=== PATIENT | female | born 1985 | race Caucasian/White ===

== ENCOUNTER 2017-08-18 09:40 | Emergency (ER) | payer OTHER ==
[2017-08-18 09:55] VITALS: BP 121/82; PULSE 75; TEMP 98.3; BMI 28.1
--- NOTE | 2017-08-18 10:29 | PDOC ---
History of Present Illness - General Chief Complaint: Pain Stated Complaint: ABDOMINAL PAIN Time Seen by Provider: 08/18/17 09:46 History Source: Patient Exam Limitations: No Limitations - History of Present Illness Travel History: No Initial Comments: 08/18/17 10:28 32y F hx of gastritis, gall stones presents with epigastric pain x 3 days. Pt notes the pain is constant, nonradiating, does not wax/wane, no associated fever , vomiting, diarrhea, dysuria, hematuria, vaginal bleeding. Pt denies any chest pain, sob, roberts, worsening of pain on exertion. pt does endorse some nausea at the very onset of the pain but it has since resolved. there is no worsening or improvement of the pain on food intake. pt notes she was dx with gall stones several years ago but the pain was more on the left side. pt denies any etoh, nsaid/pain mediction abuse LMP: 07/23/17 surgical history: csection Past History - Past Medical History Allergies/Adverse Reactions: Allergies Allergy/AdvReac Type Severity Reaction Status Date / Time No Known Allergies Allergy Verified 10/04/15 16:34 COPD: No GI Disorders: Yes (GALLSTONES) Other medical history: UMBILICAL HERNA - Reproductive History Is Patient Now?: No - Suicide/Smoking/Psychosocial Hx Smoking History: Never smoked Hx Alcohol Use: No Drug/Substance Use Hx: No Substance Use Type: None Review of Systems - Review of Systems Able to Perform ROS?: Yes Comments:: 08/18/17 11:04 Constitutional - no reported Fever, Chills, HEENT: no reported vision changes, sore throat Respiratory: no reported cough, sob, hemoptysis Cardiac: no reported chest pain, palpitations, light headedness, leg swelling Abd/GI: + abd pain, no reported nausea, vomiting, blood per rectum, melena, diarrhea : no reported dysuria, frequency, discharge Musculskelatal - no reported back pain, joint swelling skin - no reported bruising, erythema, rash neurological: no reported headache, numbness, focal weakness, tingling, ataxia, hematologic: no reported anemia, easy bruising, easy bleeding *Physical Exam - Vital Signs Last Vital Signs Temp Pulse Resp BP Pulse Ox 98.3 F 75 15 121/82 99 08/18/17 09:41 08/18/17 09:41 08/18/17 09:41 08/18/17 09:41 08/18/17 09:41 - Physical Exam Comments: 08/18/17 11:04 GENERAL: The patient is awake, alert, and fully oriented, Nontoxic - in no acute distress. HEAD: Normocephalic, atraumatic. EYES: extraocular movements intact, sclera anicteric, conjunctiva clear. ENT: Normal voice, Moist mucous membranes. NECK: Normal range of motion, supple LUNGS: Breath sounds equal, clear to auscultation bilaterally. No wheezes, no rhonchi, no rales. HEART: Regular rate and rhythm, normal S1 and S2 without murmur, rub or gallop. ABDOMEN: Soft, minimal epigastric tenderness, +defect in midline superior to ubmilcis without any masses/tenderness appeciated, normoactive bowel sounds. No guarding, no rebound. No CVA tenderness, nondistended EXTREMITIES: Normal range of motion, no edema. No clubbing or cyanosis. No cords, erythema, or tenderness. NEUROLOGICAL: No facial assymetry, Normal speech, PSYCH: Normal mood, normal affect. SKIN: Warm, Dry, normal turgor, Heart Score/ECG Review - ECG Impressions Comment:: 08/18/17 12:52 Twelve-lead EKG was performed and reviewed by me. There is normal sinus rhythm with a normal rate. Rate of 72 The axis is normal. The intervals are normal. There is normal R wave progression There are no ST or T wave abnormalities. Impression: Normal twelve-lead EKG ED Treatment Course - LABORATORY CBC & Chemistry Diagram: 08/18/17 11:00 08/18/17 11:00 Medical Decision Making - Medical Decision Making 08/18/17 11:05 32-year-old female presenting with 3 days of constant epigastric abdominal pain On exam the patient is well-appearing, in no distress with minimal epigastric tenderness Differential includes possible gastritis, pancreatitis, gall bladder, , atypical presentation of appendicitis Will obtain screening blood work, lipase, EKG, urine, hCG Will give Pepcid, Maalox Will reassess 08/18/17 12:52 The patient's labs are reviewed they are unremarkable Ultrasound noted for multiple gallstones without any signs of obstruction or CBD dilatation. 08/18/17 13:53 lipase pending 08/18/17 13:58 pt requesting to leave as she needs to pharmacy picking tech her daugther i recommended the pt stay for the lipase, but pt states she prefers to leave and we can call her with the results. if it is high, the patient will come back if it is high. she feels mild soreness in her abdomen currently. pts also here and agrees with the paln to return immediately if valdo is worse or her lipase is high will have pt fu with PMD/GI for further evaluation I discussed the physical exam findings, ancillary test results and final diagnoses with the patient. I answered all of the patient's questions. The patient was satisfied with the care received and felt comfortable with the discharge plan and treatment plan. The patient will call their primary care physician within 24 hours to arrange follow-up and will return to the Emergency Department with any new, persistent or worsening symptoms. 08/18/17 14:49 lipase negative pt notified will have her fu with her PMD *DC/Admit/Observation/Transfer Diagnosis at time of Disposition: Epigastric abdominal pain Cholelithiases Qualifiers: Cholelithiasis location: gallbladder Cholecystitis presence: without cholecystitis Biliary obstruction: without biliary obstruction Qualified Code(s) : K80.20 - Calculus of gallbladder without cholecystitis without obstruction - Discharge Dispostion Disposition: HOME Condition at time of disposition: Good Admit: No - Referrals Referrals: Jose G Martínez MD [Primary Care Provider] - - Patient Instructions Printed Discharge Instructions: DI for Gallstones, DI for Epigastric Pain Additional Instructions: Return to the emergency department immediately with ANY new, persistent or worsening symptoms including worsening abdominal pain, fevers, inability to tolerate oral intake, chest pain, shortness of breath or any other concerns. Take your nexium as prescribed. Avoid any spicy foods, sour foods, caffeine. Stay well hydrated. Your lipase level is still pending - we will call you with the results - if it is very elevated we will call you and you should return for admission You MUST call and follow up with your primary care doctor and GI doctor for further evaluation. Your emergency department visit is not complete without a followup with your doctor for reevaluation. Please make sure your doctor reviews the results of your emergency evaluation. Print Language: YORUBA - Post Discharge Activity
[2017-08-18] MEDS ORDERED: MAG HYDROX/AL HYDROX/SIMETH -MYLANTA- ORAL SUSPENSION PO ONE (10:56)
[2017-08-18] MEDS ORDERED: FAMOTIDINE IV 20 MG/12 ML VIAL IVPUSH SCH (11:00)
[2017-08-18 11:04] LABS: HCG,QUALITATIVE URINE NEGATIVE
[2017-08-18] MEDS ORDERED: MAG HYDROX/AL HYDROX/SIMETH 30 ML UNIT-DOSE CUP ONE (11:08)
[2017-08-18] MEDS ORDERED: FAMOTIDINE 20 MG/50 ML IVPB 20 MG/50 ML MG IVPB ONE (11:08)
[2017-08-18 11:10] LABS: BASO % 1.2 % (0-2.0); EOS % 2.4 % (0-4.5); HEMATOCRIT 39.5 % (32.4-45.2); HEMOGLOBIN 13.3 GM/dl (10.7-15.3); LYMPH % 27.2 % (8-40); MCH 29.7 pg (25.7-33.7); MCHC 33.8 g/dl (32.0-36.0); MEAN CELL VOLUME 87.9 fl (80-96); MEAN PLT VOLUME 9.2 fl (7.5-11.1); MONO % 6.2 % (3.8-10.2); PLATELET COUNT 277 K/MM3 (134-434); RBC 4.49 M/mm3 (3.60-5.2); RDW 12.9 % (11.6-15.6)
[2017-08-18 11:26] LABS: ALBUMIN 4.2 g/dl (3.5-5.0); ALK PHOS 63 U/L (32-92); ANION GAP 6 (8-16); BLOOD UREA NITROGEN 9 mg/dl (7-18); CALCIUM 9.1 mg/dl (8.4-10.2); CHLORIDE 103 mmol/L (98-107); CO2 25 mmol/L (22-28); GLUCOSE,RANDOM 98 mg/dl (74-106); POTASSIUM 3.8 mmol/L (3.5-5.1); SGOT/AST 20 U/L (10-42); SGPT/ALT 17 U/L (10-40); SODIUM 134 mmol/L (136-145)
[2017-08-18 11:54] LABS: PH,URINE 6.5 (4.5-8); URINE APPEARANCE Clear; URINE BILIRUBIN Negative (NEGATIVE); URINE BLOOD Negative (NEGATIVE); URINE GLUCOSE (UA) Negative (NEGATIVE); URINE KETONE Negative (NEGATIVE); URINE LEUK ESTERASE Negative (NEGATIVE); URINE NITRITE Negative (NEGATIVE); URINE PROTEIN Negative (NEGATIVE); URINE UROBILINOGEN 0.2 (0.2-1.0)
[2017-08-18 12:01] LABS: BILIRUBIN,TOTAL 0.5 mg/dl (0.2-1.0)
[2017-08-18 12:03] LABS: CREATININE < 0.8 mg/dl (0.6-1.3)
[2017-08-18 12:06] LABS: URINE COLOR YELLOW
[2017-08-18 14:42] LABS: LIPASE 130 U/L (73-393)
--- NOTE | 2017-08-20 20:47 | EKG ---
Test Reason : Blood Pressure : / mmHG Vent. Rate : 072 BPM Atrial Rate : 072 BPM P-R Int : 150 ms QRS Dur : 070 ms QT Int : 396 ms P-R-T Axes : 027 077 050 degrees QTc Int : 433 ms NORMAL SINUS RHYTHM NORMAL ECG NO PREVIOUS ECGS AVAILABLE Confirmed by TAO SILVEIRA MD ([id number]) on 08/20/2017 8:47:06 PM Referred By: SHANNON Confirmed By:TAO SILVEIRA MD
== END 2017-08-18 14:09 | disposition home or self-care (01) ==
LOC: FER 09:40
PROC: 3E033GC Introduction of Other Therapeutic Substance into Peripheral Vein, Percutaneous Approach (ICD-10-PCS; principal; 2017-08-18)
DX: K80.20 Calculus of gallbladder without cholecystitis without obstruction (principal)
CPT/HCPCS: 36415; 76705-TC; 80053; 81003; 83690; 84703; 85025; 93005; 99283-25

== ENCOUNTER 2022-06-21 18:39 | Emergency (ER) | payer OTHER ==
[2022-06-21 18:48] VITALS: BP 129/92; RESP 16; TEMP 98.8; BMI 26.2
[2022-06-21 19:54] LABS: HCG,QUALITATIVE URINE Negative
[2022-06-21 20:12] LABS: HEMATOCRIT 39.8 % (32.4-45.2); HEMOGLOBIN 13.5 G/dL (10.7-15.3); MCH 30.7 pg (25.7-33.7); MEAN CELL VOLUME 90.4 fl (80-96); MEAN PLT VOLUME 8.9 fl (7.5-11.1); PLATELET COUNT 346.8 10^3/uL (134-434); RDW 14.3 % (11.6-15.6); WHITE BLOOD COUNT 14.2 10^3/uL (4.0-10.8)
[2022-06-21 20:14] LABS: ALBUMIN 4.2 g/dl (3.4-5.0); BILIRUBIN,TOTAL 0.6 mg/dl (0.2-1); CALCIUM 9.5 mg/dl (8.5-10); CREATININE 0.7 mg/dl (0.55-1.3); TOT PROT 7.1 g/dl (6.4-8.2)
[2022-06-21 20:55] VITALS: PULSE 98
[2022-06-21 22:19] LABS: PLATELET ESTIMATE ADEQUATE
== END 2022-06-21 20:55 | disposition home or self-care (01) ==
LOC: FER 18:39
DX: T88.7XXA Unspecified adverse effect of drug or medicament, initial encounter (principal)
CPT/HCPCS: 36415; 80053; 81003; 84703; 85027; 99283-25

== ENCOUNTER 2023-12-15 19:30 | Emergency (ER) | payer OTHER ==
[2023-12-15 19:47] VITALS: BP 130/90; PULSE 74; RESP 15; TEMP 98.3; BMI 26.4
[2023-12-15] MEDS ORDERED: KETOROLAC TROMETHAMINE 30 MG/1 ML VIAL ONE (19:56)
[2023-12-15] MEDS ORDERED: ONDANSETRON 4 MG/2 ML VIAL ONE (19:56)
[2023-12-15] MEDS ORDERED: CYCLOBENZAPRINE HCL 5 MG TABLET ONE ×2 (19:57→21:17)
[2023-12-15] MEDS: ONDANSETRON 4 MG/2 ML VIAL IVPUSH ONE (20:09)
[2023-12-15] MEDS: CYCLOBENZAPRINE HCL 10 MG TABLET (FP) PO ONE ×2 (20:09→21:18)
[2023-12-15] MEDS: KETOROLAC TROMETHAMINE 30 MG/1 ML VIAL IVPUSH ONE (20:09)
[2023-12-15] MEDS: SODIUM CHLORIDE 1,000 ML IV ONE (20:09)
== END 2023-12-15 21:25 | disposition home or self-care (01) ==
LOC: FER 19:30
PROC: 3E0333Z Introduction of Anti-inflammatory into Peripheral Vein, Percutaneous Approach (ICD-10-PCS; principal; 2023-12-15)
PROC: 3E033GC Introduction of Other Therapeutic Substance into Peripheral Vein, Percutaneous Approach (ICD-10-PCS; 2023-12-15)
PROC: 3E0337Z Introduction of Electrolytic and Water Balance Substance into Peripheral Vein, Percutaneous Approach (ICD-10-PCS; 2023-12-15)
DX: G44.219 Episodic tension-type headache, not intractable (principal); R11.0 Nausea; Z20.822 Contact with and (suspected) exposure to COVID-19
CPT/HCPCS: 87635; 99284-25

== ENCOUNTER 2024-03-30 11:52 | Emergency (ER) | payer OTHER ==
[2024-03-30 12:11] VITALS: BP 129/86; PULSE 86; RESP 18; TEMP 98.6; BMI 26.7
[2024-03-30] MEDS ORDERED: FLUCONAZOLE 150 MG TABLET PO ONE (14:39)
[2024-03-30] MEDS: FLUCONAZOLE 50 MG TABLET PO ONE (14:45)
== END 2024-03-30 15:20 | disposition home or self-care (01) ==
LOC: FER 11:52
DX: R10.2 Pelvic and perineal pain (principal)
CPT/HCPCS: 76830-TC; 81003; 84703; 87086; 99284-25

== ENCOUNTER 2025-02-11 17:29 | Emergency (ER) | payer BC, OTHER ==
[2025-02-11 17:36] VITALS: BP 118/80; PULSE 95; RESP 18; TEMP 99.1; BMI 26.9
[2025-02-11 18:04] LABS: HCG,QUALITATIVE URINE Negative
[2025-02-11] MEDS ORDERED: LIDOCAINE 5% TOPICAL PATCH ONE (19:17)
[2025-02-11] MEDS ORDERED: KETOROLAC TROMETHAMINE 30 MG/1 ML VIAL ONE (19:17)
[2025-02-11 19:18] LABS: ABSOLUTE IMMATURE GRANULOCYTES 0.01 x10^3/uL (0.0-0.031); BASOPHILS # 0.05 x10^3/uL (0.01-0.08); EOSINOPHIL % 1.5 % (0.7-5.8); EOSINOPHILS # 0.14 x10^3/uL (0.04-0.36); MCHC 32.0 g/dl (32.2-35.5); MEAN CELL VOLUME 92.6 fl (79.4-94.8); MEAN PLT VOLUME 10.3 fl (9.4-12.3); MONOCYTE # 0.82 x10^3/uL (0.24-0.86); MONOCYTE % 8.8 % (4.7-12.5); RDW 12.3 % (12.2-17.1)
[2025-02-11] MEDS: KETOROLAC TROMETHAMINE 30 MG/1 ML VIAL IVPUSH ONE (19:29)
[2025-02-11 19:30] LABS: ALK PHOS 60 U/L (45-117); CO2 30 mmol/L (21-32); CREATININE 0.7 mg/dl (0.6-1.3); GLUCOSE,RANDOM 107 mg/dl (74-106); SGOT/AST 10 U/L (15-37); SGPT/ALT 9 U/L (7-52); TOT PROT 6.7 g/dl (6.4-8.2)
[2025-02-11] MEDS: LIDOCAINE 5% TOPICAL PATCH TP ONE (19:30)
[2025-02-11] MEDS: LIDOCAINE PATCH REMOVAL MC SCH (21:25)
== END 2025-02-11 22:49 | disposition home or self-care (01) ==
LOC: FER 17:29
PROC: 3E0333Z Introduction of Anti-inflammatory into Peripheral Vein, Percutaneous Approach (ICD-10-PCS; principal; 2025-02-11)
DX: R07.89 Other chest pain (principal)
CPT/HCPCS: 36415; 71046-TC-FY; 74177-TC; 80053; 81003; 84484; 84703; 85025; 87086; 93005; 99285-25; Q9967